=== PATIENT | female | born 1985 | race Two or more races ===

== ENCOUNTER 2018-06-30 09:24 | Outpatient (CLI) | END 2018-06-30 10:45 | disposition home or self-care (01) ==

== ENCOUNTER 2018-06-30 11:00 | Emergency (ER) | END 2018-06-30 12:36 | disposition home or self-care (01) ==

== ENCOUNTER 2018-08-26 14:26 | Outpatient (CLI) | END 2018-08-26 16:20 | disposition home or self-care (01) ==

== ENCOUNTER 2018-09-20 06:09 | Inpatient (IN) | payer OTHER ==
[~2018-09-20] VITALS: Ht 162.6 cm; Wt 74.1 kg
[2018-09-20 06:07] VITALS: BP 103/72; PULSE 75; RESP 17
[~2018-09-20 06:09] MED LIST: CLC1500T PO; MAG355OR14 PO; ONDA4TAB13 PO; PREN-93 PO
[2018-09-20 06:40] VITALS: Ht 162.6 cm; Wt 74.1 kg
[2018-09-20] MEDS ORDERED: AL HYDROX/MG HYDROX/SIMETH 30 ML CUP PO ONE (12:00)
--- NOTE | 2018-09-20 13:17 | HP ---
Date/Time of Note Date/Time of Note DATE: 09/20/18 TIME: 13:16 OB - History Hx of Present Chief Complaint: contractions and vaginal bleeding Estimated Due Date: Oct 11, 2018 : 1 Para: 0 Spontaneous : 0 Therapeutic : 0 Care: Good Care Ultrasounds: Abnormal US findings Abnormal Ultrasound Findings: IUGR Obstetrical Complications: Growth Restriction Medical Complications: None Past Family/Social History * Past Medical, Surgical, Family and Obstetric Histories reviewed from chart. GBS Status: Unknown OB Admission Exam Vital Signs Vital Signs Vital Signs Date Temp Pulse Resp B/P (MAP) Pulse Ox O2 O2 Flow FiO2 Time Delivery Rate 09/20/18 98.2 75 17 103/72 Room Air 06:07 (82) Physical Exam HEENT: WNL Heart: Rhythm Normal Lungs: Clear, Equal Abdomen: WNL Extremities: Normal Reflexes: Normal Cervical Dilatation: None Effacement: 50% Station: -2 Membranes: Intact Heart Rate: 120's Accelerations: Accelerations Present Decelerations: No Decelerations Varibility: Moderate Contractions on Admission: < 5 Minutes Apart OB Assessment/Plan Reason for admission: observation Plan: Expectant Management FABIENNE NELSON MD Sep 20, 2018 13:17
--- NOTE | 2018-09-20 13:23 | TRIAGE ---
OB Triage Datetime Report Generated by CPN: 09/20/2018 13:23 Datetime: 09/20/2018 12:44 Vaginal Exam Dilatation (cms): 0.0 Exam By: DELSHAD Datetime: 09/20/2018 12:30 Stage of : OB Triage Maternal Assessment Level of Consciousness: Fully Conscious Labor Evaluation Frequency: 1-7 Monitor Mode: External Duration (sec)2399: 40-90 Quality: Moderate Resting Tone Yaak: Relaxed Heart Rate FHR Baseline Rate: 140 Monitor Mode: External US Variability: Moderate 6-25 bpm Accelerations: 15X15 Decelerations: None Category: Category I Pain Assessment Pain Scale: 5 Pain Presence: Intermittent Pain Type: Cramping Pain Location: Abdomen Pain Goal: 3 Membrane Status: Intact Vaginal Bleeding: None Datetime: 09/20/2018 11:30 Stage of : OB Triage Maternal Assessment Level of Consciousness: Fully Conscious Labor Evaluation Frequency: 1-6 Monitor Mode: External Duration (sec)2399: 40-80 Quality: Moderate Resting Tone Yaak: Relaxed Heart Rate FHR Baseline Rate: 140 Monitor Mode: External US Variability: Moderate 6-25 bpm Accelerations: 15X15 Decelerations: None Category: Category I Pain Assessment Pain Scale: 5 Pain Presence: Intermittent Pain Type: Cramping Pain Location: Abdomen Pain Goal: 3 Membrane Status: Intact Vaginal Bleeding: None Datetime: 09/20/2018 10:30 Stage of : OB Triage Maternal Assessment Level of Consciousness: Fully Conscious Labor Evaluation Frequency: OCCASIONAL Monitor Mode: External Duration (sec)2399: 30-60 Quality: Moderate Resting Tone Yaak: Relaxed Heart Rate FHR Baseline Rate: 140 Monitor Mode: External US Variability: Moderate 6-25 bpm Accelerations: 15X15 Decelerations: None Category: Category I Pain Assessment Pain Scale: 5 Pain Presence: Intermittent Pain Type: Cramping Pain Location: Abdomen Pain Goal: 3 Membrane Status: Intact Vaginal Bleeding: None Datetime: 09/20/2018 09:30 Stage of : OB Triage Maternal Assessment Level of Consciousness: Fully Conscious Labor Evaluation Frequency: 1-3 Monitor Mode: External Duration (sec)2399: 40-120 Quality: Moderate Resting Tone Yaak: Relaxed Heart Rate FHR Baseline Rate: 145 Monitor Mode: External US Variability: Moderate 6-25 bpm Accelerations: 15X15 Decelerations: None Category: Category I Pain Assessment Pain Scale: 5 Pain Presence: Intermittent Pain Type: Cramping Pain Location: Abdomen Pain Goal: 3 Membrane Status: Intact Vaginal Bleeding: None Datetime: 09/20/2018 09:27 Vaginal Exam Dilatation (cms): 0.5 Effacement (%): 40 Station: -3 Exam By: KHEMANI Vaginal Bleeding: None Cervix, Consistency: Moderate Cervix, Position: Posterior Datetime: 09/20/2018 08:30 Stage of : OB Triage Maternal Assessment Level of Consciousness: Fully Conscious Labor Evaluation Frequency: 1-3 Monitor Mode: External Duration (sec)2399: 30-70 Quality: Moderate Resting Tone Yaak: Relaxed Heart Rate FHR Baseline Rate: 145 Monitor Mode: External US Variability: Moderate 6-25 bpm Accelerations: 15X15 Decelerations: None Category: Category I Pain Assessment Pain Scale: 5 Pain Presence: Intermittent Pain Type: Cramping Pain Location: Abdomen Pain Goal: 3 Membrane Status: Intact Vaginal Bleeding: None Datetime: 09/20/2018 08:00 Stage of : OB Triage Maternal Assessment Level of Consciousness: Fully Conscious Labor Evaluation Frequency: 1-3 Monitor Mode: External Duration (sec)2399: 30-70 Quality: Moderate Resting Tone Yaak: Relaxed Heart Rate FHR Baseline Rate: 145 Monitor Mode: External US Variability: Moderate 6-25 bpm Accelerations: 15X15 Decelerations: None Category: Category I Pain Assessment Pain Scale: 5 Pain Presence: Intermittent Pain Type: Cramping Pain Location: Abdomen Pain Goal: 3 Membrane Status: Intact Vaginal Bleeding: None Datetime: 09/20/2018 07:30 Stage of : OB Triage Maternal Assessment Level of Consciousness: Fully Conscious Labor Evaluation Frequency: 1-4 Monitor Mode: External Duration (sec)2399: 50-80 Quality: Moderate Resting Tone Yaak: Relaxed Heart Rate FHR Baseline Rate: 145 Monitor Mode: External US Variability: Moderate 6-25 bpm Accelerations: 15X15 Decelerations: None Category: Category I Pain Assessment Pain Scale: 5 Pain Presence: Intermittent Pain Type: Cramping Pain Location: Abdomen Pain Goal: 3 Vaginal Bleeding: None Datetime: 09/20/2018 06:51 Stage of : OB Triage Labor Evaluation Frequency: 1-4 Monitor Mode: External Duration (sec)2399: 40-80 Quality: Mild Pattern: Normal: <= 5 Contractions in 10 Minutes Resting Tone Yaak: Relaxed Heart Rate FHR Baseline Rate: 150 Monitor Mode: External US Variability: Moderate 6-25 bpm Accelerations: 15X15 Decelerations: None Category: Category I Datetime: 09/20/2018 06:50 Vaginal Exam Dilatation (cms): 0.5 Effacement (%): 0 Station: -3 Exam By: Ben KELSEY Nitrazine: Negative Cervix, Consistency: Firm Cervix, Position: Posterior Datetime: 09/20/2018 06:27 Time of Arrival: 09/20/2018 05:55 EGA: 37.0 Arrived By: Wheelchair Arrived From: Home Chief Complaint: PT HERE C/O UC'S AND LEAKING Movement: Present Contractions: Irregular Rupture of Membranes: Unsure Vaginal Bleeding: None Vaginal Discharge: Present Recent Sexual Intercouse: Denies Abdominal Trauma: Not Applicable Patient Complaints: Contractions; Cramping; Back Pain Time Provider Notified: 09/20/2018 06:57 Provider Notified: LESLIE Initial Plan: SVE/BPP/ROM PLUS/UA Datetime: 09/20/2018 06:07 Stage of : OB Triage Maternal Assessment Level of Consciousness: Fully Conscious DTR's/Clonus: DTRs 2+; No Clonus Headache: Denies Blurred Vision: No Respiratory Effort: Unlabored; Regular Rhythm; Equal Expansion Breath Sounds, Left: Clear and Equal Breath Sounds, Right: Clear and Equal Nausea/Vomiting: Denies RUQ Epigastric Pain: Denies Lower Extremities Edema: None Degree: None Upper Extremities Edema: None Degree: None Facial Edema: None Temperature Route: Oral Fall Risk Assessment History of Falling: (0) No Secondary Diagnosis: (0) No Ambulatory Aid: (0) Bedrest/Nurse Assist IV Therapy: (0) No Gait: (0) Normal/Bedrest/Immobile Mental Status: (0) Oriented to Own Ability Fall Score: 0 Fall Risk Score Definition: No Risk: No action required Pain Assessment Pain Scale: 6 Pain Presence: Constant Pain Type: Cramping; Contraction; Pressure Pain Location: Abdomen; Back Pain Goal: 0 Pain Relief Measures: Comfort Measures Pain Assessment Comments: PT REPORTED FEELING PAIN LEVEL OF 9/10 WHEN STANDING AND WALKING. Datetime: 09/20/2018 06:04 Monitor Mode: External Contraction Comments: APPLIED Monitor Mode: External US Comments: APPLIED Datetime: 08/26/2018 14:36 Fall Score: 0 Fall Risk Score Definition: No Risk: No action required Datetime: 06/30/2018 09:38 Fall Score: 0 Fall Risk Score Definition: No Risk: No action required Datetime: 06/30/2018 09:37 EGA: 25.2
[2018-09-20] MEDS: LACTATED RINGER'S 1,000 ML IV SCH ×2 (16:42→19:23)
[2018-09-20] MEDS ORDERED: DOCUSATE SODIUM 100 MG CAP PO PRN (17:00)
[2018-09-21] MEDS: LACTATED RINGER'S 1,000 ML IV SCH (03:10)
[2018-09-21] MEDS ORDERED: PRENATAL VITAMIN PO SCH (09:00)
--- NOTE | 2018-09-21 11:58 | DS ---
Date/Time of Note Date/Time of Note DATE: 09/21/18 TIME: 11:58 Obstetrical Discharge Record Final Diagnosis Final Diagnosis: Term not delivered Condition on Discharge Physical Assessment Voiding: Yes Bowel Movement: Yes Calf Tenderness: No Patient Condition: Stable FABIENNE NELSON MD Sep 21, 2018 11:58
--- NOTE | 2018-09-21 12:00 | QN ---
Documentation Comment Patient denies any vaginal bleding or contractions. Afebrile VSS Strip Reactive D/C home. Follow up with Perinatology on 09/22/2018. FABIENNE NELSON MD Sep 21, 2018 12:00
== END 2018-09-21 15:50 | disposition home or self-care (01) | DRG 832 ==
LOC: OBT 06:09 → L-D 06:10 → OBT 13:15
PROVIDERS: ADMIT Obstetrics & Gynecology; ATTEND Obstetrics & Gynecology
DX: O46.93 Antepartum hemorrhage, unspecified, third trimester (principal); O47.1 False labor at or after 37 completed weeks of gestation; O36.5930 Maternal care for other known or suspected poor fetal growth, third trimester, not applicable or unspecified; Z3A.37 37 weeks gestation of pregnancy
CPT/HCPCS: 76818; 81001; 84112; 85025; 86592; 86850; 86900; 86901; G0463; J7120

== ENCOUNTER 2018-10-11 09:00 | Inpatient (IN) | payer OTHER ==
[~2018-10-11] VITALS: Ht 160 cm; Wt 72.6 kg
[~2018-10-11 09:00] MED LIST changes: +CARBOPROST 250 MCG INJ ONE; -CLC1500T PO; -MAG355OR14 PO; +METHYLERGONOVINE 0.2 MG INJ ONE; -ONDA4TAB13 PO
[2018-10-11 11:52] VITALS: Ht 160 cm; Wt 72.6 kg
[2018-10-11] MEDS ORDERED: OXYTOCIN 30 UNITS/LR 500 ML IV SCH (12:00)
[2018-10-11] MEDS ORDERED: METHYLERGONOVINE 0.2 MG INJ IM PRN (12:00)
[2018-10-11] MEDS ORDERED: CARBOPROST 250 MCG INJ IM PRN (12:00)
[2018-10-11] MEDS ORDERED: BUTORPHANOL 2 MG INJ IV PRN (12:00)
[2018-10-11] MEDS ORDERED: MISOPROSTOL 200 MCG TAB PR PRN (12:00)
[2018-10-11] MEDS ORDERED: OXYTOCIN 30 UNITS/LR 500 ML IV PRN (12:00)
[2018-10-11] MEDS ORDERED: IBUPROFEN 600 MG TAB PO PRN (12:00)
[2018-10-11] MEDS ORDERED: LIDOCAINE 1% (MPF) 30 ML INJ INJ PRN (12:00)
[2018-10-11] MEDS ORDERED: OXYCODONE/ACETAMINOPHEN (5/325) TAB PO PRN (12:00)
[2018-10-11] MEDS: LACTATED RINGER'S 1,000 ML IV SCH ×2 (12:15→19:30)
--- NOTE | 2018-10-11 13:19 | HP ---
Date/Time of Note Date/Time of Note DATE: 10/11/18 TIME: 13:17 OB - History Hx of Present Chief Complaint: induction of labor Estimated Due Date: Oct 11, 2018 : 1 Para: 0 Spontaneous : 0 Therapeutic : 0 Care: Good Care Ultrasounds: Normal mid trimester US Obstetrical Complications: None Medical Complications: None Past Family/Social History * Past Medical, Surgical, Family and Obstetric Histories reviewed from chart. GBS Status: Negative OB Admission Exam Physical Exam HEENT: WNL Heart: Rhythm Normal Lungs: Clear, Equal Abdomen: WNL Extremities: Normal Reflexes: Normal Cervical Dilatation: None Effacement: 25% Station: -1 Membranes: Intact Heart Rate: 120's Accelerations: Accelerations Present Decelerations: No Decelerations Varibility: Moderate Last 72 hours Lab Results CBC & BMP 10/11/18 11:30 OB Assessment/Plan Reason for admission: induction of labor Plan: Induction Induction Method: per Misoprostol Protocol FABIENNE NELSON MD Oct 11, 2018 13:19
[2018-10-11] MEDS: MISOPROSTOL 50 MCG CAPSULE PO SCH (14:10)
[2018-10-12] MEDS: MISOPROSTOL 50 MCG CAPSULE PO SCH ×5 (02:42→22:09)
[2018-10-12] MEDS: LACTATED RINGER'S 1,000 ML IV SCH ×4 (02:48→18:10)
[2018-10-12] MEDS ORDERED: SENNA TAB PO ONE (13:30)
[2018-10-13] MEDS: LACTATED RINGER'S 1,000 ML IV SCH ×3 (01:55→10:10)
[2018-10-13] MEDS: MISOPROSTOL 50 MCG CAPSULE PO SCH (02:22)
--- NOTE | 2018-10-13 04:43 | PREAC ---
Date/Time of Note Date/Time of Note DATE: 10/13/18 TIME: 04:43 Anesthesia Eval and Record Evaluation Time Pre-Procedure Interview DATE: 10/13/18 TIME: 04:43 Age 33 Sex female NPO: 8 hrs Preoperative diagnosis Planned procedure labor epidural Past Medical History Past Medical History: None Surgery & Anesthesia Issues No known issue Meds Anticoagulation: No Beta Ren within 24 hr: No Reason Beta Ren not given: Pt. not on B-Ren Reported Medications Vit No.124/Iron/FA ( Vitamin Tablet) 1 Each Tablet, 1 EACH PO DAILY, TAB 06/30/18 Current Medications Lactated Ringer's 1,000 ml @ 125 mls/hr Q8H IV Last administered on 10/13/18at 04:31; Admin Dose 125 MLS/HR; Start 10/11/18 at 11:52 Butorphanol Tartrate (Stadol) 2 mg Q2H PRN IV .PAIN; Start 10/11/18 at 12:00 Lidocaine (Xylocaine 1% (Mpf)) 30 ml ONCE PRN INJ .EPISIOTOMY; Start 10/11/18 at 12:00 Oxytocin/Lactated Ringer's 500 ml @ 500 mls/hr ONCE POST IV ; Start 10/11/18 at 12:00 Oxytocin/Lactated Ringer's 500 ml @ 125 mls/hr POST IV ; Start 10/11/18 at 12:00 Ibuprofen (Motrin) 600 mg ONCE PRN PO .PAIN 1-5; Start 10/11/18 at 12:00 Oxycodone/ Acetaminophen (Percocet (5/ 325)) 2 tab ONCE PRN PO .PAIN 6-10; Start 10/11/18 at 12:00 Oxytocin/Lactated Ringer's 500 ml @ 0 mls/hr ONCE PRN IV .VAGINAL BLEEDING; Start 10/11/18 at 12:00 Methylergonovine Maleate (Methergine) 0.2 mg ONCE PRN IM .VAGINAL BLEEDING; Start 10/11/18 at 12:00 Carboprost Tromethamine (Hemabate) 250 mcg ONCE PRN IM .VAGINAL BLEEDING; Start 10/11/18 at 12:00 Misoprostol (Cytotec) 1,000 mcg ONCE PRN VT .VAGINAL BLEEDING; Start 10/11/18 at 12:00 Meds reviewed: Yes Allergies Coded Allergies: tree nut (Verified Allergy, Severe, hives, 10/13/18) Latex, Natural Rubber (Verified Allergy, Intermediate, rash, 10/13/18) milk (Verified Allergy, Intermediate, hives, 10/13/18) Uncoded Allergies: olives (Allergy, Intermediate, hives, 10/13/18) vinegar (Allergy, Intermediate, hives, 10/13/18) Allergies Reviewed: Yes Labs/Studies Labs Reviewed: Reviewed by anesthesiologist Result Diagram: 10/11/18 1130 test: Positive Pre-procedure Exam Airway: Adequate mouth opening, Adequate thyromental dist Mallampati: Mallampati II Teeth: Normal Lung: Normal Heart: Normal ASA Physical Status ASA physical status: 2 Emergency: None Planned Anesthetic Neuraxial: Epidural Pre-operative Attestations Prior to commencing anesthesia and surgery, the patient was re-evaluated, there was verification of: *The patient's identity *The results of appropriate recent lab work and preoperative vital signs *The above evaluation not changing prior to induction *Anesthetic plan, risk benefits, alternative and complications discussed with patient/family; questions answered; patient/family understands, accepts and wishes to proceed. TORY BURTON Oct 13, 2018 04:43
[2018-10-13] MEDS ORDERED: HYDROmorphONE 0.5 MG/0.5 ML SYG IV PRN ×2 (05:00)
[2018-10-13] MEDS ORDERED: DIPHENHYDRAMINE 50 MG INJ IV PRN (05:00)
[2018-10-13] MEDS ORDERED: KETOROLAC 30 MG INJ IV PRN (05:00)
[2018-10-13] MEDS ORDERED: NALOXONE (0.4 MG/ML) INJ IV PRN (05:00)
--- NOTE | 2018-10-13 05:34 | PAC ---
Date/Time of Note Date/Time of Note DATE: 10/13/18 TIME: 05:34 Post-Anesthesia Notes Post-Anesthesia Note Activity: WNL Respiratory function: WNL Cardiovascular function: WNL Mental status: Baseline Pain reasonably controlled: Yes Hydration appropriate: Yes Nausea/Vomiting absent: Yes TORY BURTON Oct 13, 2018 05:34
[2018-10-13] MEDS: FENTAnyl 2MCG/ML-ROPIV 0.2% 100 ML BAG EPI SCH ×2 (07:06→15:35)
[2018-10-13] MEDS ORDERED: MISOPROSTOL 50 MCG CAPSULE VAG ONE (09:30)
[2018-10-13] MEDS: OXYTOCIN 30 UNITS/LR 500 ML IV SCH (09:39)
[2018-10-13] MEDS: ONDANSETRON 4 MG INJ IV PRN (15:38)
[2018-10-13] MEDS ORDERED: HYDROCORTISONE 2.5% 20 GM CR TOP PRN ×2 (17:30→18:00)
[2018-10-14] MEDS: FENTAnyl 2MCG/ML-ROPIV 0.2% 100 ML BAG EPI SCH ×2 (00:15→07:34)
[2018-10-14] MEDS: ONDANSETRON 4 MG INJ IV PRN (00:57)
[2018-10-14] MEDS: LACTATED RINGER'S 1,000 ML IV SCH ×3 (01:24→09:15)
[2018-10-14] MEDS ORDERED: ACETAMINOPHEN 325 MG TAB PO PRN (05:00)
[2018-10-14] MEDS ORDERED: ACETAMINOPHEN 500 MG TAB PO STA (06:04)
[2018-10-14] MEDS ORDERED: AMPICILLIN 2 GM/NS (PMX) 100 ML ONE (06:06)
[2018-10-14] MEDS ORDERED: GENTAMICIN 120 MG/NS (PMX) 100 ML IVPB ONE ×2 (06:07→06:30)
[2018-10-14] MEDS ORDERED: ACETAMINOPHEN 650 MG SUPP PR ONE (06:30)
[2018-10-14] MEDS ORDERED: AMPICILLIN 2 GM/NS (PMX) 100 ML IVPB ONE (06:30)
[2018-10-14] MEDS ORDERED: AMPICILLIN 1 GM/NS (PMX) 50 ML IVPB SCH (09:00)
[2018-10-14] MEDS ORDERED: ONDANSETRON 4 MG INJ ONE (09:10)
[2018-10-14] MEDS ORDERED: ONDANSETRON 4 MG INJ IV STA (09:13)
[2018-10-14] MEDS: OXYTOCIN 30 UNITS/LR 500 ML IV SCH ×3 (10:26→12:21)
[2018-10-14] MEDS ORDERED: METOCLOPRAMIDE 10 MG INJ ONE (11:29)
--- NOTE | 2018-10-14 11:56 | LDN ---
Date/Time of Note Date/Time of Note DATE: 10/14/18 TIME: 11:53 Delivery Summary Uterine atony noted Methergine and Hemabate given. Weeks of Gestation 40 weeks and 3 days Placenta Delivered: Spontaneously Meconium: Light Episiotomy: No Laceration repair: Second degree perineal and vaginal lacerations repaired with 3-0 Vicryl. Anesthesia type: Epidural Estimated blood loss: 700 Sponge & Needle done & correct: Yes All needle counts correct: Yes Any foreign bodies felt in the: No Infant Delivery Information Sex Infant Sex: male Apgars 1 Minute: 9 5 Minute: 9 Suctioning Nose & mouth suctioned at fredy: No Delee suction performed: No Umbilical Cord Umbilical cord with: 3 Vessels Cord presentations: nuchal cord Nuchal cord present X: 1 Cord Blood was obtained: Yes Mother & Baby Disposition Disposition Mom & Baby to Maternity; Good: Yes FABIENNE NELSON MD Oct 14, 2018 11:56
[2018-10-14] MEDS ORDERED: METOCLOPRAMIDE 10 MG INJ IV ONE (12:00)
[2018-10-14] MEDS ORDERED: METOCLOPRAMIDE 10 MG INJ IM ONE (12:00)
[2018-10-14] MEDS ORDERED: DIPHENHYDRAMINE 50 MG INJ ONE (13:10)
[2018-10-14] MEDS ORDERED: DIPHENHYDRAMINE 50 MG INJ IV ONE (13:30)
[2018-10-14 13:34] VITALS: BP 107/68; PULSE 89; RESP 19
[2018-10-14 15:45] VITALS: BP 114/68; PULSE 87; RESP 18
[2018-10-14] MEDS ORDERED: CARBOPROST 250 MCG INJ IM PRN (16:00)
[2018-10-14] MEDS ORDERED: METHYLERGONOVINE 0.2 MG INJ IM PRN (16:00)
[2018-10-14] MEDS ORDERED: OXYTOCIN 30 UNITS/LR 500 ML IV PRN (16:00)
[2018-10-14] MEDS ORDERED: MISOPROSTOL 200 MCG TAB PR PRN (16:00)
[2018-10-14] MEDS: ACETAMINOPHEN 325 MG TAB PO PRN (16:16)
[2018-10-14] MEDS: AMPICILLIN/SULB 3 GM/NS (PMX) 100 ML IVPB SCH (18:17)
[2018-10-14] MEDS: IBUPROFEN 600 MG TAB PO SCH (18:17)
[2018-10-14 19:30] VITALS: BP 99/57; PULSE 82; RESP 19
[2018-10-14] MEDS: SENNA/DOCUSATE NA (8.6MG/50MG) TAB PO SCH (21:15)
[2018-10-14] MEDS: LACTATED RINGER'S 1,000 ML IV* SCH ×2 (21:16→23:52)
[2018-10-15] VITALS: BP 111/62; PULSE 78; RESP 20
[2018-10-15] MEDS: AMPICILLIN/SULB 3 GM/NS (PMX) 100 ML IVPB SCH ×4 (00:29→18:00)
[2018-10-15] MEDS: IBUPROFEN 600 MG TAB PO SCH ×5 (00:29→23:45)
[2018-10-15] MEDS: BENZOCAINE 20% 56 ML SPRAY TOP PRN (00:30)
[2018-10-15] MEDS: WITCH HAZEL/GLYCERIN PAD PR PRN (00:30)
[2018-10-15 03:33] VITALS: BP 97/50; PULSE 81; RESP 18
[2018-10-15] MEDS: LACTATED RINGER'S 1,000 ML IV* SCH ×2 (07:52→15:52)
[2018-10-15 08:00] VITALS: BP 100/60; PULSE 87; RESP 19
[2018-10-15] MEDS: SENNA/DOCUSATE NA (8.6MG/50MG) TAB PO SCH ×2 (08:37→20:12)
[2018-10-15] MEDS: HYDROCODONE/APAP (5/325) TAB PO PRN ×2 (08:38→20:12)
[2018-10-15] MEDS: FERROUS SULFATE (EC) 325 MG TAB PO SCH ×2 (12:17→20:12)
[2018-10-15 16:30] VITALS: BP 96/54; PULSE 86; RESP 18
[2018-10-15 20:00] VITALS: BP 103/63; PULSE 86; RESP 18
--- NOTE | 2018-10-15 22:00 | QN ---
Documentation Comment No complaiint Afebrile VSS Fundus firm Lochia scant PPD #1 Stable Continue IV Unasyn Fe supplement ID consult FABIENNE NELSON MD Oct 15, 2018 22:00
[2018-10-16] MEDS: ACETAMINOPHEN 325 MG TAB PO PRN ×3 (00:01→12:49)
[2018-10-16] MEDS: AMPICILLIN/SULB 3 GM/NS (PMX) 100 ML IVPB SCH ×4 (00:20→18:32)
[2018-10-16 04:00] VITALS: BP_SYST 111; BP_SYST 114; BP_DIAS 56; BP_DIAS 69; PULSE 67; PULSE 96; RESP 18; RESP 19
[2018-10-16] MEDS: LACTATED RINGER'S 1,000 ML IV* SCH ×4 (05:35→23:52)
[2018-10-16] MEDS: IBUPROFEN 600 MG TAB PO SCH ×3 (05:35→18:00)
[2018-10-16 08:30] VITALS: BP 104/67; PULSE 88; RESP 18
[2018-10-16] MEDS ORDERED: DIPHTH/TET/ACEL PERTUSS (ADULT) 0.5 ML VIAL IM* ONE (09:00)
[2018-10-16] MEDS: SENNA/DOCUSATE NA (8.6MG/50MG) TAB PO SCH ×2 (09:04→20:55)
[2018-10-16] MEDS: FERROUS SULFATE (EC) 325 MG TAB PO SCH ×3 (09:04→21:00)
[2018-10-16] MEDS: PRENATAL VITAMIN PO SCH (11:07)
[2018-10-16] MEDS: FOLIC ACID 1 MG TAB PO SCH (11:07)
[2018-10-16 15:43] VITALS: BP 111/69; PULSE 85; RESP 18
--- NOTE | 2018-10-16 19:53 | QN ---
Documentation Comment c/o headache, no other complaint Afebrile VSS Fundus firm Lochia scant Continue IV Unasyn Repeat CBC in AM ID consult requested FABIENNE NELSON MD Oct 16, 2018 19:53
[2018-10-16] MEDS ORDERED: LANOLIN HPA 1 PKT TOP PRN (20:00)
[2018-10-16] MEDS: BENZOCAINE 20% 56 ML SPRAY TOP PRN (20:55)
[2018-10-16] MEDS: WITCH HAZEL/GLYCERIN PAD PR PRN (20:56)
[2018-10-16 21:00] VITALS: BP 117/82; PULSE 80; RESP 17
--- NOTE | 2018-10-16 23:37 | CONS ---
DATE OF ADMISSION: 10/11/2018 DATE OF CONSULTATION: 10/16/2018 TYPE OF CONSULTATION: Infectious Disease. REASON FOR CONSULTATION: Antibiotic management. HISTORY OF PRESENT ILLNESS: The patient is a 33-year-old female who was admitted on 10/11/2018 Dr. Ceja. She was admitted for induction of labor. She has normal mid trimester. Her physical exam wa s normal. White count was 7.6, H and H 11.4 and 37.1. The patient is a 33-year-old female. PAST MEDICAL HISTORY: Operations, none. FAMILY HISTORY: Noncontributory. SOCIAL HISTORY: She does not smoke, drink, or abuse drugs. ALLERGIES: TREE NUTS, LATEX, MILK, and OLIVE VINEGAR. MEDICATIONS: Per chart. REVIEW OF SYSTEMS: Noncontributory. As per HPI. HOSPITAL COURSE: On the , she had her delivery at 40 weeks and 3 days with spontaneous delivery of the placenta. Secondary perineal and vaginal lacerations repaired with 3-0 Vicryl. She had epidu ral anesthesia. Currently, a blood culture from the grew out E. coli. She had a Shipman catheter placed which grew E. coli and enterococcus species. The placenta grew out enterococcus. and the santhosh centa also grew out E. coli. The patient is currently on Unasyn. The E. coli was 10,000 to 20,000 c olonies, sensitive to ampicillin. The enterococcus was sensitive to ampicillin as well. PHYSICAL EXAMINATION: GENERAL: The patient is a well-developed, well-nourished female. Alert, responsive, and in no acute distress. VITAL SIGNS: Stable. She is afebrile. SKIN: Without generalized rash. HEENT: Within normal limits. NECK: Supple. LYMPH NODES: None palpable. LUNGS: Clear to P and A. Decreased breath sounds at the bases. HEART: Without murmur or gallop. ABDOMEN: Soft and nontender without organosplenomegaly or masses. EXTREMITIES: Without cyanosis, clubbing, or edema. RECTAL AND GENITAL: Deferred. NEUROLOGIC: No focal neurological abnormality. Her abdomen is somewhat distended secondary to recen t . IMPRESSION AND PLAN: The patient is on appropriate antibiotic therapy. I think that Unasyn was a go od choice since it covers enterococcus because the enterococcus is sensitive to ampicillin and E. col i was sensitive as well. We could put her on ampicillin alone and that is an option that we can cris se. For the time being, Unasyn is a good choice. Her white count today is 21.6. Her hemoglobin and hematocrit were low at 6.1 and 19.4 with platelet count of 133. She may benefit certainly from rivero sfusion. I will dictate my findings to Dr. Cruz. Dictated By: JORGE CHRISTIE MD, JD/EMRE Conf#: [id number] DID#: [id number] CC: FABIENNE CRUZ MD;*End*
[2018-10-17] VITALS: BP 109/85; RESP 17
[2018-10-17] MEDS: AMPICILLIN/SULB 3 GM/NS (PMX) 100 ML IVPB SCH ×5 (00:05→23:51)
[2018-10-17] MEDS: IBUPROFEN 600 MG TAB PO SCH ×5 (00:05→23:55)
[2018-10-17 04:00] VITALS: BP 113/80; PULSE 82; RESP 17
[2018-10-17] MEDS: LACTATED RINGER'S 1,000 ML IV* SCH ×3 (07:52→23:08)
[2018-10-17 08:00] VITALS: BP 103/79; PULSE 53; RESP 18
[2018-10-17] MEDS: PRENATAL VITAMIN PO SCH (09:09)
[2018-10-17] MEDS: SENNA/DOCUSATE NA (8.6MG/50MG) TAB PO SCH ×2 (09:09→21:00)
[2018-10-17] MEDS: FOLIC ACID 1 MG TAB PO SCH (09:09)
[2018-10-17] MEDS: FERROUS SULFATE (EC) 325 MG TAB PO SCH ×3 (09:09→22:07)
[2018-10-17] MEDS: DIBUCAINE 1% 30 GM OINT TOP PRN (09:10)
--- NOTE | 2018-10-17 10:39 | CONS ---
Assessment/Plan Assessment/Plan Hospital Course (Demo Recall) ID PROGRESS NOTE CURRENT ABX: DAY # 4 => Unasyn s/p Ampicillin + GENT 10/14/18 10/17/18 0722 24H INTERVAL SUMMARY * Clinically stable = afebrile, VSS, NAD, WBC downtrending - spouse and healthy infant boy at bedside = happy family * She is tolerating the Unasyn, no rash -- she does have nausea/dyspepsia more noticeable w/ABX infusion * COMPLAINTS: * Left flank pain + suprapubic pain == (+)Acute pyelonephritis -- encouraged her this will pass in time * Anemia = symptomatic dizziness w/sitting/standing -- She is encouraged to stay in bed and rest * Headaches worse at night -- she has Rx for Tylenol + [place] * Perineal burning pain during urination -- due to laceration repair w/sutures -stable * Nausea w/meals -- likely due ABX * Acid reflux --- Will give her Rx Mylanta PRN Q4Hr * BLEXT edema L>R -- due to anemia + IVF 3rd spacing -- Rx BLEXT Sanket hose * Nipple pain -- she is still weak and recovering from Pyelo/Sepsis -- difficult breast feeding MICRO/OTHER * * PATHOLOGY REPORT: * MICROSCOPIC DIAGNOSIS:Placenta: -- Third trimester placenta showing acute chorioamnionitis. -- Three vessel umbilical cord showing acute funisitis. * 10/14/18 PLACENTA = MATERNAL SIDE TISSUE (BIOPSY) CULTURE Final Organism 1 ESCHERICHIA COLI QUANTITY SCANT GROWTH E COLI M.I.C. RX --------- --- AMPICILLIN <=2 S CEFAZOLIN R CEFOTAXIME S CIPROFLOXACIN >=4 R GENTAMICIN <=1 S LEVOFLOXACIN >=8 R TOBRAMYCIN <=1 S TRIMETHOPRIM/SULFAMETHOXAZOLE <=20 S * 10/14/18 PLACENTA = SIDE TISSUE (BIOPSY) CULTURE Final Organism 1 ENTEROCOCCUS SPECIES QUANTITY SCANT GROWTH ENT SPS M.I.C. RX --------- --- AMPICILLIN <=2 S PENICILLIN-G 4 S VANCOMYCIN 1 S * 10/14/18 URINE CX (+) E.COLI + ENTEROCOCCUS URINE CULTURE Final Organism 1 ESCHERICHIA COLI COLONY COUNT 10,000 - 20,000 CFU/ml Organism 2 ENTEROCOCCUS SPECIES COLONY COUNT 10,000 - 20,000 CFU/ml E COLI ENT SPS M.I.C. RX M.I.C. RX --------- --- --------- --- AMPICILLIN <=2 S <=2 S CEFOTAXIME S CIPROFLOXACIN >=4 R 1 S GENTAMICIN <=1 S LEVOFLOXACIN >=8 R 2 S NITROFURANTOIN <=16 S <=16 S PENICILLIN-G 4 S VANCOMYCIN 1 S TOBRAMYCIN <=1 S TRIMETHOPRIM/SULFAMETHOXAZOLE <=20 S * 10/14/18 BCx (+) GNR BLOOD CULTURE Final Organism 1 ESCHERICHIA COLI E COLI M.I.C. RX --------- --- AMPICILLIN <=2 S CEFAZOLIN I CEFOTAXIME S CIPROFLOXACIN >=4 R GENTAMICIN <=1 S LEVOFLOXACIN >=8 R TOBRAMYCIN <=1 S TRIMETHOPRIM/SULFAMETHOXAZOLE <=20 S PHYSICAL EXAMINATION: GENERAL: Afebrile, VSS, generalized weakness HEENT: AT, NC, anicteric NECK: Supple, trach midline CHEST: Equal chest rise bilaterally, without dyspnea on observation BREASTS: Soft bilateral -- milk has not come in HEART: Pulse RRR ABDOMEN: Soft / NT, post- status /MUD BOSS: Deferred EXTREMITIES: Warm, dry, (+)edema -- 3rd spacing SKIN: No rash, no diaphoresis ID ASSESSMENT 33 yo F -> s/p spontaneous vaginal delivery healthy boy on 10/14/18 with: * s/p 10/14/18 secondary perineal and vaginal lacerations repair 1. GNR Sepsis w/fevers>102.+, leukocytosis/bandemia w/BCx(+)GNR E.Coli due to UTI = RESOLVING 2. Complicated GNR E.Coli UTI/urosepsis = (+)Acute Pyelonephritis w/Left flank pain = IMPROVED * Left flank pain + suprapubic pain -- encouraged her this will pass in time 3. s/p Acute chorioamnionitis w/umbilical cord funisitis due to #1 & #2 4. Anemia = symptomatic dizziness w/sitting/standing = Bed rest, she wishes to avoid PRBC Tx 5. Headaches due to #1 & #2 worse at night -- she has Rx for Tylenol + [place] 6. Perineal burning pain during urination -- due to laceration repair w/sutures -stable 7. Nausea w/meals -- likely due ABX + Pyelonephritis -- Rx MYLANTA PO PRN * Compazine po PRN 8. Acid reflux --- Will give her Rx Mylanta PRN Q4Hr 9. BLEXT edema L>R -- due to anemia + IVF 3rd spacing -- Rx BLEXT Sanket [place] 10. Nipple pain -- she is still weak and recovering from Pyelo/Sepsis -- difficult breast feeding * I encouraged her to do what she feels is best for her bottle vs continue breast feed attempts ABX ALLERGIES: None to ABX INVASIVES: PIV CURRENT ABX: DAY # # 4 => Unasyn s/p Ampicillin + GENT 10/14/18 ID RECOMMENDATIONS/PLAN: 1. She will require a 14 day course of ABX with Unasyn -- Today is day #4/14 * May consider "PO Switch" to Augmentin 875mg po Q12 on day #8/14 ABX tx 2. Lengthy beside visit with spouse, patient, and * All questions answered. Family given encouragement that she will overcome this and feel better; yet she needs to rest and give it time. * Mylanta PRN ordered * SANKET ROBERTSON ordered 3. Pt/spouse express understanding, agreement, gratitude for recommendations above. I will come see her tomorrow. . Consultation Date/Type/Reason Admit Date/Time Oct 11, 2018 at 11:09 Initial Consult Date Date/Time of Note DATE: 10/17/18 TIME: 10:20 Exam/Review of Systems Exam Vitals Vital Signs Date Temp Pulse Resp B/P (MAP) Pulse Ox O2 O2 Flow FiO2 Time Delivery Rate 10/17/18 98.1 82 17 113/80 Room Air 04:00 (91) Intake and Output 10/16/18 10/16/18 10/17/18 1515:00 23:00 07:00 IntakeIntake Total 100 ml 100 ml 200 ml BalanceBalance 100 ml 100 ml 200 ml Results Result Diagram: 10/17/18 0722 Results 24hrs Laboratory Tests Test 10/17/18 07:22 White Blood Count 17.0 #H Red Blood Count 2.15 L Hemoglobin 5.8 *L Hematocrit 18.1 L Mean Corpuscular Volume 84.2 Mean Corpuscular Hemoglobin 27.0 L Mean Corpuscular Hemoglobin Concent 32.0 Red Cell Distribution Width 16.8 H Platelet Count 140 Mean Platelet Volume 12.5 H Immature Granulocytes % 5.900 H Neutrophils % Segmented Neutrophils % (Manual) 72 Band Neutrophils % (Manual) 12 H Lymphocytes % Lymphocytes % (Manual) 8 L Monocytes % Monocytes % (Manual) 1 Eosinophils % Basophils % Basophils % (Manual) 4 H Myelocytes % (Manual) 2 H Promyelocytes % (Manual) 2 H Nucleated Red Blood Cells % 0.3 H Immature Granulocytes # 1.010 H Neutrophils # Neutrophils # (Manual) 12.6 H Band Neutrophils # 2.0 H Lymphocytes (Manual) 1.3 Lymphocytes # Monocytes # Monocytes # (Manual) 0.1 L Eosinophils # Basophils # Basophils # (Manual) 0.6 H Myelocytes # 0.3 H Promyelocytes # 0.3 H Nucleated Red Blood Cells # Platelet Estimate NORMAL Giant Platelets 1 H Polychromasia 3+ Hypochromasia 1+ Anisocytosis 2+ Microcytosis 2+ Medications Medication Current Medications Lactated Ringer's 1,000 ml @ 125 mls/hr Q8H IV* Last administered on 10/16/18 05:35; Admin Dose 125 MLS/HR; Start 10/14/18 at 15:52 Ibuprofen (Motrin) 600 mg Q6 PO Last administered on 10/17/18 06:01; Admin Dose 600 MG; Start 10/14/18 at 18:00 Acetaminophen (Tylenol Tab) 650 mg Q4H PRN PO .PAIN 1-5 Last administered on 10/16/18 12:49; Admin Dose 650 MG; Start 10/14/18 at 16:00 Acetaminophen/ Hydrocodone Bitart ([place] (5/325)) 1 tab Q4H PRN PO .PAIN 1-5 Last administered on 10/15/18 20:12; Admin Dose 1 TAB; Start 10/14/18 at 16:00 Senna/Docusate Sodium (Senokot-S) 1 tab BID PO Last administered on 10/17/18 09:09; Admin Dose 1 TAB; Start 10/14/18 at 21:00 Witch Latonya/ Glycerin (Tucks Pads) 1 pad BEDSIDE MEDICATION PRN ID .HEMORRHOID/EPISIOTOMY PAIN Last administered on 10/16/18 20:56; Admin Dose 40 PAD; Start 10/14/18 at 16:00 Benzocaine (Dermoplast [place]) 1 spray BEDSIDE MEDICATION PRN TOP .HEMMORHOID/EPISIOTOMY PAIN Last administered on 10/16/18 20:55; Admin Dose 56 SPRAY; Start 10/14/18 at 16:00 Dibucaine (Nupercainal) 1 applic BEDSIDE MEDICATION PRN TOP .HEMMORHOID/EPISI OTOMY Last administered on 10/17/18 09:10; Admin Dose 30 APPLIC; Start 10/14/18 at 16:00 Oxytocin/Lactated Ringer's 500 ml @ 0 mls/hr ONCE PRN IV .VAGINAL BLEEDING Last administered on 10/14/18 16:19; Admin Dose 125 MLS/HR; Start 10/14/18 at 16:00 Methylergonovine Maleate (Methergine) 0.2 mg ONCE PRN IM .VAGINAL BLEEDING; Start 10/14/18 at 16:00 Carboprost Tromethamine (Hemabate) 250 mcg ONCE PRN IM .VAGINAL BLEEDING; Start 10/14/18 at 16:00 Misoprostol (Cytotec) 1,000 mcg ONCE PRN ID .VAGINAL BLEEDING; Start 10/14/18 at 16:00 Ampicillin Sodium/ Sulbactam Sodium 100 ml @ 100 mls/hr Q6 IVPB Last administered on 10/17/18 06:00; Admin Dose 100 MLS/HR; Start 10/14/18 at 18:00 Ferrous Sulfate (Ferrous Sulfate (Ec)) 325 mg TID PO Last administered on 10/17/18 09:09; Admin Dose 325 MG; Start 10/15/18 at 13:00 Folic Acid (Folic Acid) 1 mg DAILY PO Last administered on 10/17/18 09:09; Ad min Dose 1 MG; Start 10/16/18 at 11:00 Prenat Multivit/ Machinist Helper Marine/Iron/Folic Ac () 1 tab DAILY PO Last administered on 10/17/18 09:09; Admin Dose 1 TAB; Start 10/16/18 at 11:00 Lanolin (Lanolin Hpa) 1 applic BEDSIDE PRN TOP BEDSIDE FOR MARLON TO NIPPLES Last administered on 10/16/18 20:56; Admin Dose 1 APPLIC; Start 10/16/18 at 20:00 DAWIT OLSEN NP Oct 17, 2018 10:31
[2018-10-17 16:31] VITALS: BP 120/80; PULSE 86; RESP 18
[2018-10-17] MEDS: AL HYDROX/MG HYDROX/SIMETH 30 ML CUP PO PRN (16:59)
--- NOTE | 2018-10-17 17:22 | QN ---
Documentation Comment Patient states she feels better today. Patient denies dizziness. Afebrile VSS Fundus firm Hgb 5.8 ID consult noted and appreciated. Continue IV Unasyn Patient is offered blood transfusion. Patient declines blood transfusion at this time. FABIENNE NELSON MD Oct 17, 2018 17:22
[2018-10-17 20:00] VITALS: BP 118/73; PULSE 73; RESP 20
[2018-10-18 04:00] VITALS: BP 124/72; PULSE 72; RESP 16
[2018-10-18] MEDS: IBUPROFEN 600 MG TAB PO SCH ×3 (06:58→18:00)
[2018-10-18] MEDS: AMPICILLIN/SULB 3 GM/NS (PMX) 100 ML IVPB SCH ×3 (06:58→18:14)
[2018-10-18] MEDS: LACTATED RINGER'S 1,000 ML IV* SCH ×3 (07:52→23:52)
[2018-10-18 08:30] VITALS: BP 121/68; PULSE 72; RESP 17
[2018-10-18] MEDS: FOLIC ACID 1 MG TAB PO SCH (09:00)
[2018-10-18] MEDS: PRENATAL VITAMIN PO SCH (09:00)
[2018-10-18] MEDS: AL HYDROX/MG HYDROX/SIMETH 30 ML CUP PO PRN ×2 (09:00→10:03)
[2018-10-18] MEDS: FERROUS SULFATE (EC) 325 MG TAB PO SCH ×3 (09:00→21:14)
[2018-10-18] MEDS: SENNA/DOCUSATE NA (8.6MG/50MG) TAB PO SCH ×2 (09:00→21:14)
--- NOTE | 2018-10-18 10:35 | CONS ---
Assessment/Plan Assessment/Plan Hospital Course (Demo Recall) ID PROGRESS NOTE CURRENT ABX: DAY # 5 => Unasyn s/p Ampicillin + GENT 10/14/18 10/18/18 0824 24H INTERVAL SUMMARY * A/A/O -- no fevers, only 4H sleep last night due to care, blood draws, IV ABX * She is concerned she will need help at home, she wants to stay in the hospital for 14 day course of IV ABX; I advised her this is up to Dr. Cruz -- however ID attending has approved "PO Switch" ABX treatment with Augmentin 875mg PO Q12H on days #8-#14. She tells me she has hx of depression, and follows with a psychologist, she is worried when she returns home and spouse back at work that she will not be able to adequately care for the . He concerns are valid as she is suffering from generalized weakness, fatigue from the acute sepsis due to GNR pyelonephritis, in addition to blood loss anemia. She would like to treat anemia with dietary + Iron supplements and time. I explained it takes minimum of 180 days. * She also reports acute lumbago flare due to hx of L-spine DJD/DDD -- this plus pain of perineal laceration, plus pyelonephritis flank pain is a bit overwhelming to her -- she has no family, no female friends, no social support in the area as she [place]. I asked if any family could come and care for her - she has a mother in [place] who applied for travel VISA to us and was put on a waiting list. I offered to provide her with a letter of medical necessity to give to her mother to take to the [facility] in effort to support her mother's travel VISA - this would be the ideal situation for the patient and the . * Spouse is inquiring if anyone can call the [facility] and explain the situation and plead for mother's travel VISA Approval -- my response is that today is Friday, tomorrow is a [place] Holiday and I do not believe the [facility] are open for calls. Nevertheless, I will put in a consult for social work to see if they can assist her with this on if she remains on inpatient status at that time. * COMPLAINTS TODAY: * Left flank pain + suprapubic pain == (+)Acute pyelonephritis -- encouraged her this will pass in time * Anemia = symptomatic dizziness w/sitting/standing -- She is encouraged to stay in bed and rest * Headaches worse at night -- she has Rx for Tylenol + [place] * Perineal burning pain during urination -- due to laceration repair w/sutures -- pain w/passing hard stools this am * Nausea w/meals -- likely due ABX * Acid reflux --- Will give her Rx Mylanta PRN Q4Hr * BLEXT edema L>R -- due to anemia + IVF 3rd spacing -- Rx BLEXT Davian hose = SHE CAN'T WEAR DUE TO LATEX ALLERGY * Nipple pain -- she is still weak and recovering from Pyelo/Sepsis -- difficult breast feeding * Lumbago -- acute flare due to physical demands of carrying full-term baby boy. * Depression -- she is concerned once she is home w/o help this will manifest due to post- hormonal changes and acute illness. MICRO/OTHER * PATHOLOGY REPORT: * MICROSCOPIC DIAGNOSIS:Placenta: -- Third trimester placenta showing acute chorioamnionitis. -- Three vessel umbilical cord showing acute funisitis. * 10/14/18 PLACENTA = MATERNAL SIDE TISSUE (BIOPSY) CULTURE Final Organism 1 ESCHERICHIA COLI QUANTITY SCANT GROWTH E COLI M.I.C. RX --------- --- AMPICILLIN <=2 S CEFAZOLIN R CEFOTAXIME S CIPROFLOXACIN >=4 R GENTAMICIN <=1 S LEVOFLOXACIN >=8 R TOBRAMYCIN <=1 S TRIMETHOPRIM/SULFAMETHOXAZOLE <=20 S * 10/14/18 PLACENTA = SIDE TISSUE (BIOPSY) CULTURE Final Organism 1 ENTEROCOCCUS SPECIES QUANTITY SCANT GROWTH ENT SPS M.I.C. RX --------- --- AMPICILLIN <=2 S PENICILLIN-G 4 S VANCOMYCIN 1 S * 10/14/18 URINE CX (+) E.COLI + ENTEROCOCCUS URINE CULTURE Final Organism 1 ESCHERICHIA COLI COLONY COUNT 10,000 - 20,000 CFU/ml Organism 2 ENTEROCOCCUS SPECIES COLONY COUNT 10,000 - 20,000 CFU/ml E COLI ENT SPS M.I.C. RX M.I.C. RX --------- --- --------- --- AMPICILLIN <=2 S <=2 S CEFOTAXIME S CIPROFLOXACIN >=4 R 1 S GENTAMICIN <=1 S LEVOFLOXACIN >=8 R 2 S NITROFURANTOIN <=16 S <=16 S PENICILLIN-G 4 S VANCOMYCIN 1 S TOBRAMYCIN <=1 S TRIMETHOPRIM/SULFAMETHOXAZOLE <=20 S * 10/14/18 BCx (+) GNR BLOOD CULTURE Final Organism 1 ESCHERICHIA COLI E COLI M.I.C. RX --------- --- AMPICILLIN <=2 S CEFAZOLIN I CEFOTAXIME S CIPROFLOXACIN >=4 R GENTAMICIN <=1 S LEVOFLOXACIN >=8 R TOBRAMYCIN <=1 S TRIMETHOPRIM/SULFAMETHOXAZOLE <=20 S PHYSICAL EXAMINATION: GENERAL: Afebrile, VSS, generalized weakness HEENT: AT, NC, anicteric NECK: Supple, trach midline CHEST: Equal chest rise bilaterally, without dyspnea on observation BREASTS: Soft bilateral -- milk has not come in HEART: Pulse RRR ABDOMEN: Soft / NT, post- status /NUCLEAR EQUIPMENT OPERATOR: Deferred EXTREMITIES: Warm, dry, (+)edema -- 3rd spacing SKIN: No rash, no diaphoresis ID ASSESSMENT 33 yo F -> s/p spontaneous vaginal delivery healthy boy on 10/14/18 with: * s/p 10/14/18 secondary perineal and vaginal lacerations repair 1. GNR Sepsis w/fevers>102.+, leukocytosis/bandemia w/BCx(+)GNR E.Coli due to UTI => RESOLVING * Afebrile today, WBC downtrending 2. Complicated GNR E.Coli UTI/urosepsis = (+)Acute Pyelonephritis w/Left flank pain => IMPROVED * Left flank pain + suprapubic pain -- encouraged her this will pass in time 3. s/p Acute chorioamnionitis w/umbilical cord funisitis due to #1 & #2 4. Anemia = symptomatic dizziness w/sitting/standing = Bed rest, she wishes to avoid PRBC Tx 5. Headaches due to #1 & #2 worse at night -- she has Rx for Tylenol + [place] 6. Perineal burning pain during urination -- due to laceration repair w/sutures => Stable 7. Nausea w/meals -- likely due ABX + Pyelonephritis => Rx MYLANTA PO PRN 8. Acid reflux --- Will give her Rx Mylanta PRN Q4Hr 9. BLEXT edema L>R -- due to anemia + IVF 3rd spacing - * - Rx BLEXT Davian hose see can't wear due to LATEX ALLERGY 10. Nipple pain -- she is still weak and recovering from Pyelo/Sepsis -- difficult breast feeding * I encouraged her to do what she feels is best for her bottle vs continue breast feed attempts 11. Acute lumbago flare due to physical demands of carrying healthy male child to full-term * Hx of known L-spine DJD/DDD * She is concerned carrying the baby at home will be difficult due to acute fl are. 12. Depression - hx of depression, she follows with private psychologist * There is a feng doug concern/risk for post- depression flare due to hormonal changes in setting acute septic illness, generalized weakness, fatigue, back pain, symptomatic anemia. ABX ALLERGIES: None to ABX INVASIVES: PIV CURRENT ABX: DAY #5 => Unasyn s/p Ampicillin + GENT 2 ID RECOMMENDATIONS/PLAN: 1. She will require a 14 day course of ABX with Unasyn -- Today is day #5/14 * May consider "PO Switch" to Augmentin 875mg po Q12 on day #8/14 ABX tx 2. Social work referral place: * Spouse is inquiring if anyone can call the [place] [facility] and explain the situation and plead for mother's travel VISA Approval -- my response is that today is Friday, tomorrow is a [place] Holiday and I do not believe the [facility] are open for calls. Nevertheless, I will put in a consult for social work to see if they can assist her with this on if she remains on inpatient status at that time. 3. LETTER BELOW PROVIDED TO THE PATIENT == It would be in patient's best interest if her mother was granted travel VISA to [place] ````````````````` `````````````````````````````````````````````````````````````````` ````````````````````````````````` `````````````````````````````````````````````````` [facility] [facility] [place] [address] October 18, 2018 RE: Medical Recommendation for Ms. Gerry Galvin to be granted [place] VISA for travel to [facility] to provide home care for her daughter, Maia Egan, who is status post delivery of healthy baby boy on 10/14/18 with acute serious health complications. To the [facility] Staff: My patient, Maia Egan, is a 33 year old female who delivered a healthy baby boy on 10/14/18. Unfortunately, her delivery and post- course has been complicated with the onset of severe Gram- Negative Barber Bacterial sepsis due to acute E.Coli bacterial pyelonephritis. The E.Coli pathogen spread through her system as evidenced by 10/14/18 blood cultures confirming bacteremia. The bacterial infection also spread through the placenta in utero causing acute chorioamnionitis and umbilical cord acute funisitis. She also required repair of secondary vaginal and perineal laceration repair. Of concern, the patients post condition is compromised by severe anemia with an abnormally low hemoglobin of 5.8 with the patient opting for nutritional iron supplement and time for her own body to build up new hemoglobin stores which will take a minimum of 180 days. 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 Furthermore, she has a history of depression, and there is a concern for acute post- depression in consideration of all her health challenges above, plus she is relatively new to living in the [facility] with limited command of the [place] language, no family support, no social support in place and with her spouse returning to work this week. While she no longer requires hospitalization after she completes her 14 days of antibiotics, it is medically recommended that her mother, Gerry Galvin, be granted special accommodation [facility] travel VISA to provide in home support services to her daughter and grandson. The patient will be on bed-rest until her anemia resolves due to symptomatic weakness, orthostatic hypotension, and dizziness. The patient needs the daily support for an estimated 90-180 days post . FINAL MEDICAL RECOMMENDATION: Please nydia Maia Quigley mother, Ms. Gerry Galvin, urgent travel VISA to the [facility] to provide medically necessary in home care to her daughter whose optimal health recovery is dependent on in home support services. Thank you for your careful and favorable consideration of this urgent life c risis medical need. Enclosed please find medical documentation supporting the severity of the patients condition and hospital course. Sincerely, Rk Norris MD Infectious Diseases Attending Physician/Kirstin Olsen NP ````````````````````````````````````````````````````````` `````````````````````````` ````````````````````````````````````````````````````````````````````````` `````````` Consultation Date/Type/Reason Admit Date/Time Oct 11, 2018 at 11:09 Initial Consult Date Date/Time of Note DATE: 10/18/18 TIME: 10:31 Exam/Review of Systems Exam Vitals Vital Signs Date Temp Pulse Resp B/P (MAP) Pulse Ox O2 O2 Flow FiO2 Time Delivery Rate 10/18/18 97.3 72 16 124/72 Room Air 04:00 (89) Intake and Output 10/17/18 10/17/18 10/18/18 1515:00 23:00 07:00 IntakeIntake Total 100 ml 900 ml 550 ml BalanceBalance 100 ml 900 ml 550 ml Results Result Diagram: 10/18/18 0824 Results 24hrs Laboratory Tests Test 10/18/18 08:24 White Blood Count 14.9 H Red Blood Count 2.21 L Hemoglobin 5.8 *L Hematocrit 18.4 L Mean Corpuscular Volume 83.3 Mean Corpuscular Hemoglobin 26.2 L Mean Corpuscular Hemoglobin Concent 31.5 L Red Cell Distribution Width 16.7 H Platelet Count 172 # Mean Platelet Volume 12.1 H Immature Granulocytes % 14.400 H Neutrophils % Segmented Neutrophils % (Manual) 60 Band Neutrophils % (Manual) 7 H Lymphocytes % Lymphocytes % (Manual) 16 Monocytes % Monocytes % (Manual) 7 Eosinophils % Eosinophils % (Manual) 1 Basophils % Metamyelocytes % (manual) 2 H Myelocytes % (Manual) 5 H Promyelocytes % (Manual) 2 H Nucleated Red Blood Cells % 2 H Immature Granulocytes # 2.140 H Neutrophils # Neutrophils # (Manual) 9.1 H Band Neutrophils # 1.0 H Lymphocytes (Manual) 2.3 Lymphocytes # Monocytes # Monocytes # (Manual) 1.0 H Eosinophils # Basophils # Metamyelocytes # 0.2 H Myelocytes # 0.7 H Promyelocytes # 0.2 H Nucleated Red Blood Cells # Platelet Estimate NORMAL Polychromasia 3+ Poikilocytosis 1+ Anisocytosis 2+ Microcytosis 1+ Rouleau 1+ Medications Medication Current Medications Lactated Ringer's 1,000 ml @ 125 mls/hr Q8H IV* Last administered on 10/17/18 23:08; Admin Dose 125 MLS/HR; Start 10/14/18 at 15:52 Ibuprofen (Motrin) 600 mg Q6 PO Last administered on 10/18/18 06:58; Admin Dose 600 MG; Start 10/14/18 at 18:00 Acetaminophen (Tylenol Tab) 650 mg Q4H PRN PO .PAIN 1-5 Last administered on 10/16/18 12:49; Admin Dose 650 MG; Start 10/14/18 at 16:00 Acetaminophen/ Hydrocodone Bitart ([place] (5/325)) 1 tab Q4H PRN PO .PAIN 1-5 Last administered on 10/15/18 20:12; Admin Dose 1 TAB; Start 10/14/18 at 16:00 Senna/Docusate Sodium (Senokot-S) 1 tab BID PO Last administered on 10/18/18 09:00; Admin Dose 1 TAB; Start 10/14/18 at 21:00 Witch Latonya/ Glycerin (Tucks Pads) 1 pad BEDSIDE MEDICATION PRN CO .HEMORRHOID/EPISIOTOMY PAIN Last administered on 10/16/18 20:56; Admin Dose 40 PAD; Start 10/14/18 at 16:00 Benzocaine (Dermoplast [place]) 1 spray BEDSIDE MEDICATION PRN TOP .HEMMORHOID/EPISIOTOMY PAIN Last administered on 10/16/18 20:55; Admin Dose 56 SPRAY; Start 10/14/18 at 16:00 Dibucaine (Nupercainal) 1 applic BEDSIDE MEDICATION PRN TOP .H EMMORHOID/EPISIOTOMY Last administered on 10/17/18 09:10; Admin Dose 30 APPLIC; Start 10/14/18 at 16:00 Oxytocin/Lactated Ringer's 500 ml @ 0 mls/hr ONCE PRN IV .VAGINAL BLEEDING Last administered on 10/14/18 16:19; Admin Dose 125 MLS/HR; Start 10/14/18 at 16:00 Methylergonovine Maleate (Methergine) 0.2 mg ONCE PRN IM .VAGINAL BLEEDING; Start 10/14/18 at 16:00 Carboprost Tromethamine (Hemabate) 250 mcg ONCE PRN IM .VAGINAL BLEEDING; Start 10/14/18 at 16:00 Misoprostol (Cytotec) 1,000 mcg ONCE PRN CO .VAGINAL BLEEDING; Start 10/14/18 at 16:00 Ampicillin Sodium/ Sulbactam Sodium 100 ml @ 100 mls/hr Q6 IVPB Last administered on 10/18/18 06:58; Admin Dose 100 MLS/HR; Start 10/14/18 at 18:00 Ferrous Sulfate (Ferrous Sulfate (Ec)) 325 mg TID PO Last administered on 10/18/18 09:00; Admin Dose 325 MG; Start 10/15/18 at 13:00 Folic Acid (Folic Acid) 1 mg DAILY PO Last administered on 10/18/18 09:00; Admin Dose 1 MG; Start 10/16/18 at 11:00 Prenat Multivit/ [place]/Iron/Folic Ac () 1 tab DAILY PO Last administered on 10/18/18 09:00; Admin Dose 1 TAB; Start 10/16/18 at 11:00 Lanolin (Lanolin Hpa) 1 applic BEDSIDE PRN TOP BEDSIDE FOR MARLON TO NIPPLES Last administered on 10/16/18at 20:56; Admin Dose 1 APPLIC; Start 10/16/18 at 20:00 Al Hydrox/Mg Hydrox/Simethicone (Mag-Al Plus) 30 ml Q4H PRN PO GASTROINTESTINAL UPSET Last administered on 10/18/18at 10:03; Admin Dose 30 ML; Start 10/17/18 at 11:30 KIRSTIN OLSEN PUMP SERVICE SUPERVISOR Oct 18, 2018 10:35
--- NOTE | 2018-10-18 13:35 | QN ---
Documentation Comment No complaint. Patient denies headache or dizziness. Afebrile VSS Fundus firm Lochia scant Hgb 5.8 Stable Continue IV Unasyn Patient declines blood transfusion. FABIENNE NELSON MD Oct 18, 2018 13:35
[2018-10-18 15:45] VITALS: BP 135/81; PULSE 70; RESP 18
[2018-10-18] MEDS: PANTOPRAZOLE (EC) 40 MG TAB PO SCH (18:07)
[2018-10-18 20:30] VITALS: BP 131/78; PULSE 75; RESP 18
[2018-10-19] MEDS: AMPICILLIN/SULB 3 GM/NS (PMX) 100 ML IVPB SCH ×4 (00:19→18:15)
[2018-10-19] MEDS: IBUPROFEN 600 MG TAB PO SCH ×4 (00:20→18:00)
[2018-10-19] MEDS: PANTOPRAZOLE (EC) 40 MG TAB PO SCH (06:04)
[2018-10-19 08:00] VITALS: BP 123/66; PULSE 65; RESP 18
[2018-10-19] MEDS: LACTATED RINGER'S 1,000 ML IV* SCH ×2 (10:23→20:12)
[2018-10-19] MEDS: SENNA/DOCUSATE NA (8.6MG/50MG) TAB PO SCH ×2 (10:42→21:25)
[2018-10-19] MEDS: FOLIC ACID 1 MG TAB PO SCH (10:42)
[2018-10-19] MEDS: PRENATAL VITAMIN PO SCH (10:42)
[2018-10-19] MEDS: FERROUS SULFATE (EC) 325 MG TAB PO SCH ×3 (10:42→17:39)
[2018-10-19 12:00] VITALS: BP 138/72; PULSE 74; RESP 18
--- NOTE | 2018-10-19 14:06 | CONS ---
Assessment/Plan Assessment/Plan Hospital Course (Demo Recall) ID PROGRESS NOTE CURRENT ABX: DAY # 6 => Unasyn s/p Ampicillin + GENT 10/14/18 10/19/18 0614 24H INTERVAL SUMMARY * Slow clinical improvement, no fevers, WBC slowly declining. HGB noted * Appreciate Molding Technician note -- recommended family report to [place] [facility] vs [facility] in [place] and present my medical letter of recommendation for granting [place] mother [place] Travel Visa for urgent home care post of mikel owens and grandson. * COMPLAINTS TODAY: * Left flank pain + suprapubic pain == (+)Acute pyelonephritis -- encouraged her this will pass in time * Anemia = symptomatic dizziness w/sitting/standing -- She is encouraged to stay in bed and rest * Headaches worse at night -- she has Rx for Tylenol + [place] * Perineal burning pain during urination -- due to laceration repair w/sutures -- pain w/passing hard stools this am * Nausea w/meals -- likely due ABX * Acid reflux --- Will give her Rx Mylanta PRN Q4Hr * BLEXT edema L>R -- due to anemia + IVF 3rd spacing -- Rx BLEXT Davian hose = SHE CAN'T WEAR DUE TO LATEX ALLERGY * Nipple pain -- she is still weak and recovering from Pyelo/Sepsis -- difficult breast feeding * Lumbago -- acute flare due to physical demands of carrying full-term baby boy. * Depression -- she is concerned once she is home w/o help this will manifest due to post- hormonal changes and acute illness. MICRO/OTHER * PATHOLOGY REPORT: * MICROSCOPIC DIAGNOSIS:Placenta: -- Third trimester placenta showing acute chorioamnionitis. -- Three vessel umbilical cord showing acute funisitis. * 10/14/18 PLACENTA = MATERNAL SIDE TISSUE (BIOPSY) CULTURE Final Organism 1 ESCHERICHIA COLI QUANTITY SCANT GROWTH E COLI M.I.C. RX --------- --- AMPICILLIN <=2 S CEFAZOLIN R CEFOTAXIME S CIPROFLOXACIN >=4 R GENTAMICIN <=1 S LEVOFLOXACIN >=8 R TOBRAMYCIN <=1 S TRIMETHOPRIM/SULFAMETHOXAZOLE <=20 S * 10/14/18 PLACENTA = SIDE TISSUE (BIOPSY) CULTURE Final Organism 1 ENTEROCOCCUS SPECIES QUANTITY SCANT GROWTH ENT SPS M.I.C. RX --------- --- AMPICILLIN <=2 S PENICILLIN-G 4 S VANCOMYCIN 1 S * 10/14/18 URINE CX (+) E.COLI + ENTEROCOCCUS URINE CULTURE Final Organism 1 ESCHERICHIA COLI COLONY COUNT 10,000 - 20,000 CFU/ml Organism 2 ENTEROCOCCUS SPECIES COLONY COUNT 10,000 - 20,000 CFU/ml E COLI ENT SPS M.I.C. RX M.I.C. RX --------- --- --------- --- AMPICILLIN <=2 S <=2 S CEFOTAXIME S CIPROFLOXACIN >=4 R 1 S GENTAMICIN <=1 S LEVOFLOXACIN >=8 R 2 S NITROFURANTOIN <=16 S <=16 S PENICILLIN-G 4 S VANCOMYCIN 1 S TOBRAMYCIN <=1 S TRIMETHOPRIM/SULFAMETHOXAZOLE <=20 S * 10/14/18 BCx (+) GNR BLOOD CULTURE Final Organism 1 ESCHERICHIA COLI E COLI M.I.C. RX --------- --- AMPICILLIN <=2 S CEFAZOLIN I CEFOTAXIME S CIPROFLOXACIN >=4 R GENTAMICIN <=1 S LEVOFLOXACIN >=8 R TOBRAMYCIN <=1 S TRIMETHOPRIM/SULFAMETHOXAZOLE <=20 S PHYSICAL EXAMINATION: GENERAL: Afebrile, VSS, generalized weakness HEENT: AT, NC, anicteric NECK: Supple, trach midline CHEST: Equal chest rise bilaterally, without dyspnea on observation BREASTS: Soft bilateral -- milk has not come in HEART: Pulse RRR ABDOMEN: Soft / NT, post- status /CEMENTER MACHINE APPLICATOR: Deferred EXTREMITIES: Warm, dry, (+)edema -- 3rd spacing SKIN: No rash, no diaphoresis ID ASSESSMENT 33 yo F -> s/p spontaneous vaginal delivery healthy boy on 10/14/18 with: * s/p 10/14/18 secondary perineal and vaginal lacerations repair 1. GNR Sepsis w/fevers>102.+, leukocytosis/bandemia w/BCx(+)GNR E.Coli due to UTI => RESOLVING * Afebrile today, WBC downtrending 2. Complicated GNR E.Coli UTI/urosepsis = (+)Acute Pyelonephritis w/Left flank pain => IMPROVED * Left flank pain + suprapubic pain -- encouraged her this will pass in time 3. s/p Acute chorioamnionitis w/umbilical cord funisitis due to #1 & #2 4. Anemia = symptomatic dizziness w/sitting/standing = Bed rest, she wishes to avoid PRBC Tx 5. Headaches due to #1 & #2 worse at night -- she has Rx for Tylenol + [place] 6. Perineal burning pain during urination -- due to laceration repair w/sutures => Stable 7. Nausea w/meals -- likely due ABX + Pyelonephritis => Rx MYLANTA PO PRN 8. Acid reflux --- Will give her Rx Mylanta PRN Q4Hr 9. BLEXT edema L>R -- due to anemia + IVF 3rd spacing - * - Rx BLEXT Davian hose see can't wear due to LATEX ALLERGY 10. Nipple pain -- she is still weak and recovering from Pyelo/Sepsis -- difficult breast feeding * I encouraged her to do what she feels is best for her bottle vs continue breast feed attempts 11. Acute lumbago flare due to physical demands of carrying healthy male child to full-term * Hx of known L-spine DJD/DDD * She is concerned carrying the baby at home will be difficult due to acute flare. 12. Depression - hx of depression, she follows with private psychologist * There is a feng doug concern/risk for post- depression flare due to hormonal changes in setting acute septic illness, generalized weakness, fat igue, back pain, symptomatic anemia. ABX ALLERGIES: None to ABX INVASIVES: PIV CURRENT ABX: DAY #6 => Unasyn s/p Ampicillin + GENT 10/14/18 ID RECOMMENDATIONS/PLAN: 1. She will require a 14 day course of ABX with Unasyn -- Today is day #6/14 * May consider "PO Switch" to Augmentin 875mg po Q12 on day #8/14 ABX tx 2. Social work referral completed - thank you. * Appreciate Molding Technician note -- recommended family report to [place] [facility] in [place] and present my medical letter of recommendation for granting [place] mother [place] Travel Visa for urgent home care post of daughter and grandson. * LETTER PROVIDED TO THE PATIENT (see my note from yesterday) * It would be in patient's best interest if her mother was granted travel VISA to [place] to assist w/home care post . . Consultation Date/Type/Reason Admit Date/Time Oct 11, 2018 at 11:09 Initial Consult Date Date/Time of Note DATE: 10/19/18 TIME: 14:01 Exam/Review of Systems Exam Vitals Vital Signs Date Temp Pulse Resp B/P (MAP) Pulse Ox O2 O2 Flow FiO2 Time Delivery Rate 10/19/18 98.3 65 18 123/66 Room Air 08:00 (85) Intake and Output 10/18/18 10/18/18 10/19/18 1515:00 23:00 07:00 IntakeIntake Total 200 ml BalanceBalance 200 ml Results Result Diagram: 10/19/18 0614 Results 24hrs Laboratory Tests Test 10/19/18 06:14 White Blood Count 13.4 H Red Blood Count 2.14 L Hemoglobin 5.7 *L Hematocrit 18.3 L Mean Corpuscular Volume 85.5 Mean Corpuscular Hemoglobin 26.6 L Mean Corpuscular Hemoglobin Concent 31.1 L Red Cell Distribution Width 16.8 H Platelet Count 198 Mean Platelet Volume 11.8 H Immature Granulocytes % 23.000 H Neutrophils % Segmented Neutrophils % (Manual) 52 Band Neutrophils % (Manual) 3 Lymphocytes % Lymphocytes % (Manual) 24 Monocytes % Monocytes % (Manual) 3 Eosinophils % Basophils % Metamyelocytes % (manual) 6 H Myelocytes % (Manual) 10 H Promyelocytes % (Manual) 2 H Nucleated Red Blood Cells % 2 H Immature Granulocytes # 3.070 H Neutrophils # Neutrophils # (Manual) 7.0 Band Neutrophils # 0.4 Lymphocytes (Manual) 3.2 H Lymphocytes # Monocytes # Monocytes # (Manual) 0.4 Eosinophils # Basophils # Metamyelocytes # 0.8 H Myelocytes # 1.3 H Promyelocytes # 0.2 H Nucleated Red Blood Cells # Platelet Estimate NORMAL Giant Platelets 2 H Polychromasia 1+ Poikilocytosis 1+ Anisocytosis 1+ Microcytosis 1+ Macrocytosis 1+ Medications Medication Current Medications Lactated Ringer's 1,000 ml @ 125 mls/hr Q8H IV* Last administered on 10/19/18at 10:23; Admin Dose 125 MLS/HR; Start 10/14/18 at 15:52 Ibuprofen (Motrin) 600 mg Q6 PO Last administered on 10/19/18 12:35; Admin Dose 600 MG; Start 10/14/18 at 18:00 Acetaminophen (Tylenol Tab) 650 mg Q4H PRN PO .PAIN 1-5 Last administered on 10/16/18 12:49; Admin Dose 650 MG; Start 10/14/18 at 16:00 Acetaminophen/ Hydrocodone Bitart ([place] (5/325)) 1 tab Q4H PRN PO .PAIN 1-5 Last administered on 10/15/18 20:12; Admin Dose 1 TAB; Start 10/14/18 at 16:00 Senna/Docusate Sodium (Senokot-S) 1 tab BID PO Last administered on 10/19/18 10:42; Admin Dose 1 TAB; Start 10/14/18 at 21:00 Witch Latonya/ Glycerin (Tucks Pads) 1 pad BEDSIDE MEDICATION PRN [place] .HEMORRHOID/EPISIOTOMY PAIN Last administered on 10/16/18 20:56; Admin Dose 40 PAD; Start 10/14/18 at 16:00 Benzocaine (Dermoplast [place]) 1 spray BEDSIDE MEDICATION PRN [place] .HEMMORHOID/EPISIOTOMY PAIN Last administered on 10/16/18 20:55; Admin Dose 56 SPRAY; Start 10/14/18 at 16:00 Dibucaine (Nupercainal) 1 applic BEDSIDE MEDICATION PRN [place] .HEMMORHOID/EPISIOTOMY Last administered on 10/17/18 09:10; Admin Dose 30 APPLIC; Start 10/14/18 at 16:00 Oxytocin/Lactated Ringer's 500 ml @ 0 mls/hr ONCE PRN IV .VAGINAL BLEEDING Last administered on 10/14/18 16:19; Admin Dose 125 MLS/HR; Start 10/14/18 at 16:00 Methylergonovine Maleate (Methergine) 0.2 mg ONCE PRN IM .VAGINAL BLEEDING; Start 10/14/18 at 16:00 Carboprost Tromethamine (Hemabate) 250 mcg ONCE PRN IM .VAGINAL BLEEDING; Start 10/14/18 at 16:00 Misoprostol (Cytotec) 1,000 mcg ONCE PRN [place] .VAGINAL BLEEDING; Start 10/14/18 at 16:00 Ampicillin Sodium/ Sulbactam Sodium 100 ml @ 100 mls/hr Q6 IVPB Last administered on 10/19/18 12:03; Admin Dose 100 MLS/HR; Start 10/14/18 at 18:00 Ferrous Sulfate (Ferrous Sulfate (Ec)) 325 mg TID PO Last administered on 10/19/18 10:42; Admin Dose 325 MG; Start 10/15/18 at 13:00 Folic Acid (Folic Acid) 1 mg DAILY PO Last administered on 10/19/18 10:42; Admin Dose 1 MG; Start 10/16/18 at 11:00 Prenat Multivit/ [place]/Iron/Folic Ac () 1 tab DAILY PO Last administered on 10/19/18 10:42; Admin Dose 1 TAB; Start 10/16/18 at 11:00 Lanolin (Lanolin Hpa) 1 applic BEDSIDE PRN TOP BEDSIDE FOR MARLON TO NIPPLES Last administered on 10/16/18 20:56; Admin Dose 1 APPLIC; Start 10/16/18 at 20:00 Al Hydrox/Mg Hydrox/Simethicone (Mag-Al Plus) 30 ml Q4H PRN PO GASTROINTESTINAL UPSET Last administered on 10/18/18 10:03; Admin Dose 30 ML; Start 10/17/18 at 11:30 Pantoprazole (Protonix Tab) 40 mg DAILY@06 PO Last administered on 10/19/18 06:04; Admin Dose 40 MG; Start 10/18/18 at 14:00 DAWIT OLSEN NP Oct 19, 2018 14:06
[2018-10-19 16:00] VITALS: BP 145/76; PULSE 86; RESP 18
[2018-10-19] MEDS: ACETAMINOPHEN 325 MG TAB PO PRN (17:39)
--- NOTE | 2018-10-19 19:20 | QN ---
Documentation Comment No complaint Afebrile VSS Fundus firm Hgb 5.7 Patient now agrees to receiving blood transfusion Will transfuse 2 units RBC. FABIENNE NELSON MD Oct 19, 2018 19:20
[2018-10-19 19:30] VITALS: BP 124/76; PULSE 66; RESP 19
[2018-10-19] MEDS ORDERED: ACETAMINOPHEN 325 MG TAB PO ONE (19:30)
[2018-10-19] MEDS ORDERED: DIPHENHYDRAMINE 25 MG CAP PO ONE (19:30)
[2018-10-20] MEDS: AMPICILLIN/SULB 3 GM/NS (PMX) 100 ML IVPB SCH ×4 (00:36→17:56)
[2018-10-20] MEDS: LACTATED RINGER'S 1,000 ML IV* SCH ×4 (00:40→23:52)
[2018-10-20 03:45] VITALS: BP 133/69; PULSE 69; RESP 18
[2018-10-20] MEDS: IBUPROFEN 600 MG TAB PO SCH ×4 (06:13→17:55)
[2018-10-20] MEDS: PANTOPRAZOLE (EC) 40 MG TAB PO SCH (06:13)
[2018-10-20 08:20] VITALS: BP 135/84; PULSE 60; RESP 17
[2018-10-20] MEDS: SENNA/DOCUSATE NA (8.6MG/50MG) TAB PO SCH ×2 (09:51→21:31)
[2018-10-20] MEDS: FOLIC ACID 1 MG TAB PO SCH (09:51)
[2018-10-20] MEDS: PRENATAL VITAMIN PO SCH (09:51)
[2018-10-20] MEDS: FERROUS SULFATE (EC) 325 MG TAB PO SCH ×3 (09:51→21:31)
[2018-10-20] MEDS ORDERED: MAGNESIUM HYDROXIDE 30ML CUP PO PRN (10:00)
--- NOTE | 2018-10-20 12:04 | QN ---
Documentation Comment Patient received 2 units of RBC. Patient feels better. Afebrile VSS Hgb 8.1 Stable Continue IV Unasyn. FABIENNE NELSON MD Oct 20, 2018 12:04
--- NOTE | 2018-10-20 12:39 | CONS ---
Assessment/Plan Assessment/Plan Hospital Course (Demo Recall) ID PROGRESS NOTE CURRENT ABX: DAY # 7 => Unasyn s/p Ampicillin + GENT 10/14/18 10/20/18 1054 24H INTERVAL SUMMARY * Ambulating in [place] with spouse and -- pleasant affect -- has increased energy due to s/p PRBC Tx * Feeling more confident about her ability to bounce back from post- complications of sepsis, pyelo, pain. * No fevers, VSS, HGB improved, WBC slow trend back to normal * COMPLAINTS TODAY: No complaints == tells me feeling better in all areas today MICRO/OTHER * PATHOLOGY REPORT: * MICROSCOPIC DIAGNOSIS:Placenta: -- Third trimester placenta showing acute chorioamnionitis. -- Three vessel umbilical cord showing acute funisitis. * 10/14/18 PLACENTA = MATERNAL SIDE TISSUE (BIOPSY) CULTURE Final Organism 1 ESCHERICHIA COLI QUANTITY SCANT GROWTH E COLI M.I.C. RX --------- --- AMPICILLIN <=2 S CEFAZOLIN R CEFOTAXIME S CIPROFLOXACIN >=4 R GENTAMICIN <=1 S LEVOFLOXACIN >=8 R TOBRAMYCIN <=1 S TRIMETHOPRIM/SULFAMETHOXAZOLE <=20 S * 10/14/18 PLACENTA = SIDE TISSUE (BIOPSY) CULTURE Final Organism 1 ENTEROCOCCUS SPECIES QUANTITY SCANT GROWTH ENT SPS M.I.C. RX --------- --- AMPICILLIN <=2 S PENICILLIN-G 4 S VANCOMYCIN 1 S * 10/14/18 URINE CX (+) E.COLI + ENTEROCOCCUS URINE CULTURE Final Organism 1 ESCHERICHIA COLI COLONY COUNT 10,000 - 20,000 CFU/ml Organism 2 ENTEROCOCCUS SPECIES COLONY COUNT 10,000 - 20,000 CFU/ml E COLI ENT SPS M.I.C. RX M.I.C. RX --------- --- --------- --- AMPICILLIN <=2 S <=2 S CEFOTAXIME S CIPROFLOXACIN >=4 R 1 S GENTAMICIN <=1 S LEVOFLOXACIN >=8 R 2 S NITROFURANTOIN <=16 S <=16 S PENICILLIN-G 4 S VANCOMYCIN 1 S TOBRAMYCIN <=1 S TRIMETHOPRIM/SULFAMETHOXAZOLE <=20 S * 10/14/18 BCx (+) GNR BLOOD CULTURE Final Organism 1 ESCHERICHIA COLI E COLI M.I.C. RX --------- --- AMPICILLIN <=2 S CEFAZOLIN I CEFOTAXIME S CIPROFLOXACIN >=4 R GENTAMICIN <=1 S LEVOFLOXACIN >=8 R TOBRAMYCIN <=1 S TRIMETHOPRIM/SULFAMETHOXAZOLE <=20 S PHYSICAL EXAMINATION: GENERAL: Afebrile, VSS, generalized weakness HEENT: AT, NC, anicteric NECK: Supple, trach midline CHEST: Equal chest rise bilaterally, without dyspnea on observation BREASTS: Soft bilateral -- milk has not come in HEART: Pulse RRR ABDOMEN: Soft / NT, post- status /REGIONAL OPERATIONS DIRECTOR: Deferred EXTREMITIES: Warm, dry, (+)edema -- 3rd spacing SKIN: No rash, no diaphoresis ID ASSESSMENT 33 yo F -> s/p spontaneous vaginal delivery healthy boy on 10/14/18 with: * s/p 10/14/18 secondary perineal and vaginal lacerations repair 1. GNR Sepsis w/fevers>102.+, leukocytosis/bandemia w/BCx(+)GNR E.Coli due to UTI => RESOLVED * Afebrile today, WBC downtrending 2. Complicated GNR E.Coli UTI/urosepsis = (+)Acute Pyelonephritis w/Left flank pain => RESOLVING * Left flank pain + suprapubic pain -- encouraged her this will pass in time 3. s/p Acute chorioamnionitis w/umbilical cord funisitis due to #1 & #2 4. Anemia = symptomatic dizziness w/sitting/standing = Bed rest, she wishes to avoid PRBC Tx 5. Headaches due to #1 & #2 worse at night -- she has Rx for Tylenol + [place] 6. Perineal burning pain during urination -- due to laceration repair w/sutures => IMPROVING 7. Nausea w/meals -- likely due ABX + Pyelonephritis => Rx MYLANTA PO PRN 8. Acid reflux --- Will give her Rx Mylanta PRN Q4Hr 9. BLEXT edema L>R -- due to anemia + IVF 3rd spacing - * - Rx BLEXT Davian hose see can't wear due to LATEX ALLERGY 10. Nipple pain -- she is still weak and recovering from Pyelo/Sepsis -- difficult breast feeding * I encouraged her to do what she feels is best for her bottle vs continue breast feed attempts 11. Acute lumbago flare due to physical demands of carrying healthy male child to full-term * Hx of known L-spine DJD/DDD * She is concerned carrying the baby at home will be difficult due to acute flare. 12. Depression - hx of depression, she follows with private psychologist=> IMPROVING == mood improved w/PRBC has more energy * There is a feng doug concern/risk for post- depression flare due to hormonal changes in setting acute septic illness, generalized weakness, fatigue, back pain, symptomatic anemia. ABX ALLERGIES: None to ABX INVASIVES: PIV CURRENT ABX: DAY #6 => Unasyn s/p Ampicillin + GENT 10/14/18 ID RECOMMENDATIONS/PLAN: 1. She will require a 14 day course of ABX with Unasyn -- Today is day #7/14 * May consider "PO Switch" to Augmentin 875mg po Q12 on day #8/14 ABX tx 2. Social work referral completed - Patient's mood and affect have improved post PRBC Tx she has more energy * Appreciate Catalogue Clerk note -- recommended family report to [place] [facility] in [place] and present my medical letter of recommendation for granting [place] mother [place] Travel Visa for urgent home care post of daughter and grandson. * LETTER PROVIDED TO THE PATIENT (see my note from yesterday) * It would be in patient's best interest if her mother was granted travel VISA to [place] to assist w/home care post . . Consultation Date/Type/Reason Admit Date/Time Oct 11, 2018 at 11:09 Initial Consult Date Date/Time of Note DATE: 10/20/18 TIME: 12:34 Exam/Review of Systems Exam Vitals Vital Signs Date Temp Pulse Resp B/P (MAP) Pulse Ox O2 O2 Flow FiO2 Time Delivery Rate 10/20/18 98.7 69 18 133/69 Room Air 03:45 (90) Intake and Output 10/19/18 10/19/18 10/20/18 1515:00 23:00 07:00 IntakeIntake Total 250 ml 700 ml OutputOutput Total 1 ml BalanceBalance 250 ml 699 ml Results Result Diagram: 10/20/18 1054 Results 24hrs Laboratory Tests Test 10/20/18 06:50 10/20/18 10:54 Lab Scanned Report BLOOD TRANSFUSION White Blood Count 12.2 H Red Blood Count 2.99 #L Hemoglobin 8.1 #L Hematocrit 25.4 #L Mean Corpuscular Volume 84.9 Mean Corpuscular Hemoglobin 27.1 L Mean Corpuscular Hemoglobin Concent 31.9 L Red Cell Distribution Width 15.7 H Platelet Count 238 # Mean Platelet Volume 11.5 H Immature Granulocytes % 23.300 H Neutrophils % 51.5 Lymphocytes % 16.5 Monocytes % 6.5 Eosinophils % 1.5 Basophils % 0.7 Nucleated Red Blood Cells % 1.6 H Immature Granulocytes # 2.850 H Neutrophils # 6.3 Lymphocytes # 2.0 Monocytes # 0.8 Eosinophils # 0.2 Basophils # 0.1 Nucleated Red Blood Cells # 0.2 H Medications Medication Current Medications Lactated Ringer's 1,000 ml @ 125 mls/hr Q8H IV* Last administered on 10/20/18 00:40; Admin Dose 125 MLS/HR; Start 10/14/18 at 15:52 Ibuprofen (Motrin) 600 mg Q6 PO Last administered on 10/20/18 06:13; Admin Dose 600 MG; Start 10/14/18 at 18:00 Acetaminophen (Tylenol Tab) 650 mg Q4H PRN PO .PAIN 1-5 Last administered on 10/19/18 17:39; Admin Dose 650 MG; Start 10/14/18 at 16:00 Acetaminophen/ Hydrocodone Bitart ([place] (5/325)) 1 tab Q4H PRN PO .PAIN 1-5 Last administered on 10/15/18 20:12; Admin Dose 1 TAB; Start 10/14/18 at 16:00 Senna/Docusate Sodium (Senokot-S) 1 tab BID PO Last administered on 10/20/18 09:51; Admin Dose 1 TAB; Start 10/14/18 at 21:00 Witch Latonya/ Glycerin (Tucks Pads) 1 pad BEDSIDE MEDICATION PRN [place] .HEMORRHOID/EPISIOTOMY PAIN Last administered on 10/16/18 20:56; Admin Dose 40 PAD; Start 10/14/18 at 16:00 Benzocaine (Dermoplast [place]) 1 spray BEDSIDE MEDICATION PRN TOP .HEMMORHOID/EPISIOTOMY PAIN Last administered on 10/16/18 20:55; Admin Dose 56 SPRAY; Start 10/14/18 at 16:00 Dibucaine (Nupercainal) 1 applic BEDSIDE MEDICATION PRN TOP .HEMMO RHOID/EPISIOTOMY Last administered on 10/17/18 09:10; Admin Dose 30 APPLIC; Start 10/14/18 at 16:00 Oxytocin/Lactated Ringer's 500 ml @ 0 mls/hr ONCE PRN IV .VAGINAL BLEEDING Last administered on 10/14/18 16:19; Admin Dose 125 MLS/HR; Start 10/14/18 at 16:00 Methylergonovine Maleate (Methergine) 0.2 mg ONCE PRN IM .VAGINAL BLEEDING; Start 10/14/18 at 16:00 Carboprost Tromethamine (Hemabate) 250 mcg ONCE PRN IM .VAGINAL BLEEDING; Start 10/14/18 at 16:00 Misoprostol (Cytotec) 1,000 mcg ONCE PRN [place] .VAGINAL BLEEDING; Start 10/14/18 at 16:00 Ampicillin Sodium/ Sulbactam Sodium 100 ml @ 100 mls/hr Q6 IVPB Last administered on 10/20/18 06:12; Admin Dose 100 MLS/HR; Start 10/14/18 at 18:00 Ferrous Sulfate (Ferrous Sulfate (Ec)) 325 mg TID PO Last administered on 10/20/18 09:51; Admin Dose 325 MG; Start 10/15/18 at 13:00 Folic Acid (Folic Acid) 1 mg DAILY PO Last administered on 10/20/18 09:51; Admin Dose 1 MG; Start 10/16/18 at 11:00 Prenat Multivit/ [place]/Iron/Folic Ac () 1 tab DAILY PO Last administered on 10/20/18 09:51; Admin Dose 1 TAB; Start 10/16/18 at 11:00 Lanolin (Lanolin Hpa) 1 applic BEDSIDE PRN TOP BEDSIDE FOR MARLON TO NIPPLES Last administered on 10/16/18 20:56; Admin Dose 1 APPLIC; Start 10/16/18 at 20:00 Al Hydrox/Mg Hydrox/Simethicone (Mag-Al Plus) 30 ml Q4H PRN PO GASTROINTESTINAL UPSET Last administered on 2/17/19at 10:03; Admin Dose 30 ML; Start 10/17/18 at 11:30 Pantoprazole (Protonix Tab) 40 mg DAILY@06 PO Last administered on 10/20/18at 06:13; Admin Dose 40 MG; Start 10/18/18 at 14:00 Magnesium Hydroxide (Milk Of Mag) 30 ml DAILY PRN PO CONSTIPATION; Start 10/20/18 at 10:00 DAWIT OLSEN NP Oct 20, 2018 12:39
[2018-10-20 16:00] VITALS: BP 113/61; PULSE 67; RESP 16
[2018-10-20 20:10] VITALS: BP 141/70; PULSE 64; RESP 19
[2018-10-21] MEDS: AMPICILLIN/SULB 3 GM/NS (PMX) 100 ML IVPB SCH ×3 (00:11→14:22)
[2018-10-21] MEDS: IBUPROFEN 600 MG TAB PO SCH ×3 (00:11→12:35)
[2018-10-21 00:15] VITALS: BP 132/74; PULSE 70; RESP 19
[2018-10-21] MEDS: DIBUCAINE 1% 30 GM OINT TOP PRN (00:19)
[2018-10-21] MEDS: WITCH HAZEL/GLYCERIN PAD PR PRN (00:20)
[2018-10-21] MEDS: BENZOCAINE 20% 56 ML SPRAY TOP PRN (00:20)
[2018-10-21 05:30] VITALS: BP 133/71; PULSE 78; RESP 18
[2018-10-21] MEDS: PANTOPRAZOLE (EC) 40 MG TAB PO SCH (05:30)
[2018-10-21 08:00] VITALS: BP 145/66; PULSE 63; RESP 19
[2018-10-21] MEDS: SENNA/DOCUSATE NA (8.6MG/50MG) TAB PO SCH (09:12)
[2018-10-21] MEDS: FOLIC ACID 1 MG TAB PO SCH (09:13)
[2018-10-21] MEDS: FERROUS SULFATE (EC) 325 MG TAB PO SCH ×2 (09:13→12:35)
[2018-10-21] MEDS: PRENATAL VITAMIN PO SCH (09:13)
== END 2018-10-21 17:05 | disposition home or self-care (01) | DRG 807 ==
LOC: L-D 11:09 → PP1 10-14 13:38
PROVIDERS: ADMIT Obstetrics & Gynecology; ATTEND Obstetrics & Gynecology
PROC: 10E0XZZ Delivery of Products of Conception, External Approach (ICD-10-PCS; principal; 2018-10-14)
PROC: 0KQM0ZZ Repair Perineum Muscle, Open Approach (ICD-10-PCS; 2018-10-14)
PROC: 30233N1 Transfusion of Nonautologous Red Blood Cells into Peripheral Vein, Percutaneous Approach (ICD-10-PCS; 2018-10-19)
DX: O48.0 Post-term pregnancy (principal); Z37.0 Single live birth; Z3A.40 40 weeks gestation of pregnancy; O70.1 Second degree perineal laceration during delivery; O99.02 Anemia complicating childbirth
CPT/HCPCS: 36430; 62319; 76816; 83605; 85025; 85610; 85730; 86592; 86850; 86900; 86901; 86920; 87040; 87070; 87086; 87340; 88307; 99464; J0290; J0295; J1200; J1580; J2210; J2405; J2590; J2765; J3010; J7120; P9016